=== PATIENT | female | born 2000 | race Caucasian/White ===

== ENCOUNTER 2022-03-17 09:12 | Emergency (ER) | payer BC, SELFPAY ==
[2022-03-17 09:26] VITALS: BP 149/89; PULSE 93; RESP 16; TEMP 36.9; O2SAT 100
--- NOTE | 2022-03-17 09:27 | ED.WOUNDLAC ---
HPI - Wound/Laceration General Stated Complaint: Stitches Removal Time Seen by Provider: 03/17/22 09:40 Source: patient and RN notes reviewed Mode of arrival: ambulatory Limitations: no limitations History of Present Illness HPI narrative: 21-year-old female presents concern for suture removal. She reports she had a cyst removed on her right hip and had sutures placed there 8 days ago. She reports her it trainee told her to have the sutures removed in 14 days. She reports the wound is healing nicely, has noticed redness, drainage. She reports she is going out of town and will not have a chance to have the sutures removed for some time if she does not get the removed today. She reports that her doctor told her she could remove harm herself but she was not sure that she could given their location, she will be away from any place to get them removed while on vacation. She also reports absorbable sutures on her right shoulder that she wants checked. She denies drainage from any wound. Related Data Home Medications Medication Instructions Recorded Confirmed estradiol-dienogest 3 mg/2 mg-2 1 tablet PO DIRECTED 03/17/22 03/17/22 mg/2 mg-3 mg/1 mg tablet ([place]) Allergies Allergy/AdvReac Type Severity Reaction Status Date / Time No Known Allergies Allergy Unverified 03/17/22 09:34 Review of Systems Review of Systems: CONSTITUTIONAL: Denies malaise, chills, sweats, or fever. SKIN: Reports healing wound with sutures to the right hip and right shoulder MUSCULOSKELETAL: Denies muscle skeletal pain NEUROLOGIC: Denies numbness, weakness All systems reviewed & are unremarkable except as noted in HPI and below PMFSH Comments At time of signature, agree with nursing past medical, surgical, social and family history. There is no relevant family history pertinent to the presenting complaint Exam Narrative: GENERAL: Well-appearing, well-nourished, and in no acute distress. HEAD: Normocephalic, atraumatic. EYES: PERRLA, conjunctivae clear, and EOMI. ENT: Mucous membranes moist. Oropharynx without edema, erythema or lesions. NECK: Supple. No lymphadenopathy CHEST: Clear to auscultation. No respiratory distress. HEART: Regular rate and rhythm. SKIN: Warm, dry. Well approximated and healing wound with 4 intact sutures noted to the left hip without surrounding erythema, edema, induration. 2 sutures noted to the right shoulder with a very small amount of erythema and scab NEURO: Alert and oriented x3. PSYCH: Normal mood and affect Course Course Emergency Course: Discussed the risks of removing sutures before the recommended time by her it trainee. Patient would like to go ahead with the procedure due to her inability to have them removed at the appropriate time. Agreed to remove sutures and Place Steri-Strips given that patient understands the risks. Patient is aware of diagnosis, understands and agrees to treatment plan. Anticipatory guidance given. Patient agrees to follow-up as directed and is aware of reasons to seek care at the emergency department. Portions of this record may have been created with voice recognition software Level of Care: Express Care Visit Vital Signs Vital signs: Vital Signs Temperature 98.5 F 03/17/22 09:26 Pulse Rate 93 03/17/22 09:26 Respiratory Rate 16 03/17/22 09:26 Blood Pressure 149/89 H 03/17/22 09:26 Pulse Oximetry 100 03/17/22 09:26 Oxygen Delivery Room Air 03/17/22 09:26 Temperature 98.5 F 03/17/22 09:26 Pulse Rate 93 03/17/22 09:26 Respiratory Rate 16 03/17/22 09:26 Blood Pressure 149/89 H 03/17/22 09:26 Pulse Oximetry 100 03/17/22 09:26 Oxygen Delivery Room Air 03/17/22 09:26 Reviewed. MDM - Wound/Laceration MDM Narrative Medical decision making narrative: Verbal consent was obtained. Wound well approximated, no erythema, induration, or discharge noted. 4 completely removed in a sterile fashion. Patient tolerated procedure w
== END 2022-03-17 10:02 | disposition home or self-care (01) ==
PROVIDERS: Emergency Provider Nurse Practitioner
DX: Z48.02 Encounter for removal of sutures (principal)
CPT/HCPCS: 99213; G0463